=== PATIENT | female | born 1970 | race Two or more races ===

== ENCOUNTER 2016-07-01 16:51 | Emergency (ER) | payer OTHER ==
--- NOTE | ~2016-07-01 | CR72 ---
[facility] A Service of [facility] [place] RADIOLOGY TEXT RESULTS PATIENT: MICHAEL GREER LOCATION: [place] : 68 UNIT #: [id number] AGE: [address]: Jazmine Cline MD SEX: F ORDER DR: [id number] [facility]. [place], [place] [address] [id number] MR#: [id number] Acc #: [id number] NAME: MICHAEL GREER : 1970 SEX: F STUDY DATE/TIME: 07/01/2016 16:47 UNIT: [facility] ROOM: STUDY DESCRIPTION: CR Chest Single View Portable Attending Physician: Jazmine Cline M.D. Ordering Physician: Jazmine Cline M.D. Primary Care Physician: Juan J RicoPKathy MEDICAL IMAGING REPORT This report is preliminary unless electronic signature is present EXAM Portable chest 07/01/2016 HISTORY Shortness of breath and wheezing COMPARISON FINDINGS A portable view of the chest was obtained. The heart size is normal. There is mild perihilar interstitial prominence which is very subtle but seemed new from the prior study. There are no focal infiltrates. The bones are normal. IMPRESSION While no focal infiltrates suggesting bacterial pneumonia are identified, there does seem to be some perihilar interstitial prominence which is new from last year's study and the patient may have a viral process. Dictated by... Lm Asher M.D. THIS IS AN ELECTRONICALLY VERIFIED REPORT Lm Asher M.D. at 07/02/2016 2:00 PM FEL/rnr TD: 07/02/2016 00:17 JOB #: [id number] [facility] A Service [facility] RADIOLOGY TEXT RESULTS PATIENT: MICHAEL GREER LOCATION: [facility] : 68 UNIT #: [id number] AGE: [address]: Jazmine Cline MD SEX: F ORDER DR: MEDICAL IMAGING REPORT Page 1 of 1 COPY
--- NOTE | ~2016-07-01 | EKG ---
PATIENT: MICHAEL GREER UNIT #: [id number] Ventricular Rate: 108 BPM Atrial Rate: 108 BPM P-R Interval: 124 ms QRS Duration: 110 ms Q-T Interval: 348 ms QTC Calculation(Bezet): 466 ms P [facility]: 73 degrees Calculated R [facility]: 62 degrees Calculated T [facility]: -114 degrees Diagnosis Line: Sinus tachycardia Diagnosis Line: ST and T wave abnormality, consider inferolateral Diagnosis Line: ischemia Diagnosis Line: Abnormal ECG Diagnosis Line: When compared with ECG of 25-FEB-2016 12:02, Diagnosis Line: QRS duration has increased Diagnosis Line: ST now depressed in Inferior leads Diagnosis Line: ST now depressed in Lateral leads Diagnosis Line: Inverted T waves have replaced nonspecific T wave Diagnosis Line: abnormality in Inferior leads Diagnosis Line: T wave inversion now evident in Anterior leads Diagnosis Line: Confirmed by BRADFORD CASTRO MD ([id number]) on 07/03/2016 Diagnosis Line: 4:04:23 PM INTERPRETING MD: GLORIA RUDD
[2016-07-01 17:19] LABS: BASOPHIL% 0.5 % (0-2.5); EOSINOPHIL# 0.4 X10e3 (0-0.7); EOSINOPHIL% 3.8 % (0.0-7.0); HEMATOCRIT 38.2 % (35.0-45.0); HEMOGLOBIN 12.1 gm/dL (12.0-16.0); LYMPHOCYTE# 2.6 X10e3 (1.0-3.5); LYMPHOCYTE% 27.1 % (17.0-45.0); MEAN CELL VOLUME 80.3 FL (83-96); MEAN CORPUSCULAR HEMOGLOBIN 25.5 PG (28-34); MEAN CORPUSCULAR HGB CONC 31.7 g/dL (30-36); MEAN PLATELET VOLUME 9.4 FL (6.5-11.5); MONOCYTE# 0.8 X10e3 (0-1.0); MONOCYTE% 8.1 % (3.0-12.0); NEUTROPHIL# 5.9 X10e3 (1.5-7.1); NEUTROPHIL% 60.5 % (40-75); PLATELET COUNT 188 X10e3 (140-420); RED BLOOD COUNT 4.75 X10e (3.90-5.30); RED CELL DISTRIBUTION WIDTH 16.4 % (11.0-15.5); WHITE BLOOD COUNT 9.8 X10e3 (4.0-10.5)
[2016-07-01 17:20] LABS: DIFF IND NO
[2016-07-01 17:27] LABS: POC - CKMB <1.0 ng/mL (0.0-7.9); POC - TROPONIN <0.05 ng/mL (<=0.05)
[2016-07-01 17:36] LABS: INR 0.9; PARTIAL THROMBOPLASTIN TIME 23.8 SECONDS (23.5-31.3); PROTHROMBIN TIME (PATIENT) 9.9 SECONDS (9.6-11.5)
[2016-07-01 17:50] LABS: ALBUMIN SERUM 4.1 g/dL (3.5-5.0); ALKALINE PHOSPHATASE 77 U/L (32-92); ALT (SGPT) 18 U/L (10-40); AST (SGOT) 24 U/L (10-42); BILIRUBIN, DIRECT 0.1 mg/dL (0.0-0.2); BILIRUBIN,INDIRECT 0.4 mg/dL (0.0-0.9); BILIRUBIN,TOTAL 0.5 mg/dL (0.2-2.0); BLOOD UREA NITROGEN <5 mg/dL (9-23); BUN/CREATININE RATIO 8.33; CARBON DIOXIDE 24 mmol/L (22-31); CHLORIDE 107 mmol/L (100-111); CREATININE SERUM 0.6 mg/dL (0.6-1.4); GLOM FILT RATE Estimated 108.5 mL/min (>60); GLUCOSE FASTING 111 mg/dL (70-110); MAGNESIUM 2.1 mg/dL (1.6-3.0); POTASSIUM 3.6 mmol/L (3.5-5.1); PROTEIN TOTAL SERUM 6.9 g/dL (6.0-8.3); SODIUM 138 mmol/L (135-145)
[2016-07-01 17:52] LABS: INFLUENZA A NEG (NEG); INFLUENZA B NEG (NEG)
== END 2016-07-01 19:49 | disposition home or self-care (01) ==
LOC: CED 16:51
PROVIDERS: Student in an Organized Health Care Education/Training Program
DX: J45.901 Unspecified asthma with (acute) exacerbation (principal); J18.9 Pneumonia, unspecified organism
CPT/HCPCS: 36415; 71010; 80048; 80076; 82553; 83735; 83880; 84484; 85025; 85610; 85730; 87804; 93005; 96365; 96366; 96375; 99284; J2920; J3475